=== PATIENT | female | born 1950 | race Caucasian/White ===

== ENCOUNTER 2018-06-03 06:43 | Day surgery (SDC) | payer OTHER ==
[~2018-06-03] VITALS: Ht 172.7 cm; Wt 84.5 kg
[~2018-06-03 06:43] MED LIST: ALENDRONATE SOD35 MG PO; ALEVE PM CAPLE1 EACH PO; BUPR150T2; FERRO-TIME325 MG PO; FISH OIL 1,0001 EAC2 PO; LISI20 PO; LORAZAPAM; LOVA40 PO; MULTI VITAMIN1 EACH PO; Metformin HCl850 MG PO; Neurontin 100100 MG PO; OXYACE5T PO; RANI150; RXOXYACE PO; TUMS X-STR300 MG PO; TYLENOL; Zanaflex4 M1 PO
[2018-06-03] MEDS ORDERED: Azor 10-20 MG1 EACH (07:16)
[2018-06-03] MEDS ORDERED: FISH OIL + D31 EACH (07:16)
[2018-06-03] MEDS ORDERED: LOVA40 (07:16)
[2018-06-03] MEDS ORDERED: HYDCHL12.5 (07:16)
== END 2018-06-03 08:55 | disposition home or self-care (01) ==
LOC: ORSCSDS 06:43
PROVIDERS: Student in an Organized Health Care Education/Training Program
PROC: 0DB68ZX Excision of Stomach, Via Natural or Artificial Opening Endoscopic, Diagnostic (ICD-10-PCS; principal; 2018-06-03 08:00)
DX: R11.2 Nausea with vomiting, unspecified (principal); K26.9 Duodenal ulcer, unspecified as acute or chronic, without hemorrhage or perforation; K25.9 Gastric ulcer, unspecified as acute or chronic, without hemorrhage or perforation; K29.70 Gastritis, unspecified, without bleeding; K44.9 Diaphragmatic hernia without obstruction or gangrene; E11.9 Type 2 diabetes mellitus without complications; I10 Essential (primary) hypertension; D64.9 Anemia, unspecified; E78.00 Pure hypercholesterolemia, unspecified; Z86.73 Personal history of transient ischemic attack (TIA), and cerebral infarction without residual deficits; Z87.891 Personal history of nicotine dependence; Z79.84 Long term (current) use of oral hypoglycemic drugs; Z79.899 Other long term (current) drug therapy
CPT/HCPCS: 82947; 88305; 88342; J0330; J1980; J2405

== ENCOUNTER 2018-09-02 08:32 | Day surgery (SDC) | payer OTHER ==
[~2018-09-02] VITALS: Ht 170.2 cm; Wt 90.6 kg
[~2018-09-02 08:32] MED LIST changes: +AMLO5 PO; +Azor 10-20 MG1 EACH; +FISH OIL + D31 EACH; +GABA300 PO; +HYDCHL12.5; +HYDCHL25 PO; +LOVA40; +Omeprazole20 M1 PO
== END 2018-09-02 10:57 | disposition home or self-care (01) ==
LOC: ORSCSDS 08:32
PROVIDERS: Student in an Organized Health Care Education/Training Program
PROC: 0DB98ZX Excision of Duodenum, Via Natural or Artificial Opening Endoscopic, Diagnostic (ICD-10-PCS; principal; 2018-09-02 10:15)
PROC: 0DB68ZX Excision of Stomach, Via Natural or Artificial Opening Endoscopic, Diagnostic (ICD-10-PCS; principal; 2018-09-02 10:15)
DX: D64.9 Anemia, unspecified (principal); Z87.11 Personal history of peptic ulcer disease; K29.80 Duodenitis without bleeding; I10 Essential (primary) hypertension; E78.5 Hyperlipidemia, unspecified; K44.9 Diaphragmatic hernia without obstruction or gangrene; K21.9 Gastro-esophageal reflux disease without esophagitis; E11.9 Type 2 diabetes mellitus without complications; Z87.891 Personal history of nicotine dependence; Z79.899 Other long term (current) drug therapy
CPT/HCPCS: 82947; 88305; 88342; J7120

== ENCOUNTER 2018-09-22 06:32 | Day surgery (SDC) | payer OTHER ==
[~2018-09-22] VITALS: Ht 170.2 cm; Wt 94.1 kg
== END 2018-09-22 08:20 | disposition home or self-care (01) ==
LOC: ORSCSDS 06:32
PROVIDERS: Ophthalmology
PROC: 08RJ3JZ Replacement of Right Lens with Synthetic Substitute, Percutaneous Approach (ICD-10-PCS; principal; 2018-09-22 08:00)
DX: H25.11 Age-related nuclear cataract, right eye (principal); I10 Essential (primary) hypertension; E11.9 Type 2 diabetes mellitus without complications; Z87.891 Personal history of nicotine dependence; Z79.899 Other long term (current) drug therapy; E66.9 Obesity, unspecified; Z68.32 Body mass index [BMI] 32.0-32.9, adult
CPT/HCPCS: 82947; J2001; J2250; J3010; J3301; J7120; V2632

== ENCOUNTER → 2018-10-17 | Outpatient (CLI) | payer OTHER ==
[2018-10-17 11:10] LABS: BASOPHILS ABSOLUTE AUTO 0.06 K/mm3 (0.00-0.23); BASOPHILS PERCENT AUTO 1 % (0-2); EOSINOPHILS ABSOLUTE AUTO 0.46 K/mm3 (0.00-0.68); EOSINOPHILS PERCENT AUTO 5 % (0-6); Hematocrit 26.4 % (33.0-51.0); Hemoglobin 8.1 g/dL (11.5-16.0); IMMATURE GRAN ABSOLUTE AUTO 0.03 K/mm3 (0.00-0.10); IMMATURE GRAN PERCENT AUTO 0 % (0-1); LYMPHOCYTES ABSOLUTE AUTO 2.64 K/mm3 (0.84-5.20); LYMPHOCYTES PERCENT AUTO 29 % (21-46); MONOCYTES ABSOLUTE AUTO 0.66 K/mm3 (0.16-1.47); MONOCYTES PERCENT AUTO 7 % (4-13); Mean Corpuscular HGB 25.8 pg (26.0-34.0); Mean Corpuscular HGB Conc 30.7 g/dL (31.5-36.5); Mean Corpuscular Volume 84 fL (80-100); Mean Platelet Volume 9.5 fL (9.1-12.4); NEUTROPHILS ABSOLUTE AUTO 5.34 K/mm3 (1.96-9.15); NEUTROPHILS PERCENT AUTO 58 % (41-73); Platelet Count 489 K/mm3 (150-400); RDW Coefficient Variation 15.6 % (11.7-14.2); RDW Standard Deviation 47.7 fL (35.1-46.3); Red Blood Cell Count 3.14 M/mm3 (3.80-5.20); White Blood Cell Count 9.19 K/mm3 (4.00-11.30)
[2018-10-17 11:32] LABS: Alanine Aminotransfer (ALT/SGP 12 U/L (12-78); Albumin, Blood 3.8 g/dL (3.4-5.0); Albumin/Globulin Ratio 1.1 (0.8-1.8); Alk Phos 95 U/L (40-126); Anion Gap 8 mmol/L (6-16); Aspartate Aminotrans (AST/SGOT 10 U/L (12-37); Bilirubin, Total 0.3 mg/dL (0.1-1.0); Blood Urea Nitrogen 16 mg/dL (8-24); Bun/Creatinine Ratio 15.4 (12.0-20.0); CO2, Blood 25 mmol/L (21-32); Calcium, Blood 8.7 mg/dL (8.5-10.1); Chloride, Blood 104 mmol/L (98-108); Creatinine, Blood 1.04 mg/dL (0.40-1.00); Globulin, Blood 3.4 g/dL (2.2-4.0); Glomerular Filtration Rate 53 (60-); Glucose, Blood 100 mg/dL (70-99); Sodium, Blood 137 mmol/L (136-145); Thyroid Stimulating Hormone 1.628 uIU/mL (0.360-4.800); Total Protein, Blood 7.2 g/dL (6.4-8.2)
[2018-10-17 11:38] LABS: Troponin I <0.017 ng/mL (0.000-0.040)
== END | disposition home or self-care (01) ==
LOC: LAB EV 11:04 → LAB SHORT 11:04
PROVIDERS: Physician Assistant
DX: R55 Syncope and collapse (principal); R06.02 Shortness of breath; R53.83 Other fatigue
CPT/HCPCS: 80053; 83880; 84443; 84484; 85025

== ENCOUNTER 2018-11-03 07:01 | Day surgery (SDC) | payer OTHER ==
[~2018-11-03] VITALS: Ht 170.2 cm; Wt 95.3 kg
[~2018-11-03 07:01] MED LIST changes: +HIGH POTENCY I134 MG PO
== END 2018-11-03 09:17 | disposition home or self-care (01) ==
LOC: ORSCSDS 07:01
PROVIDERS: Ophthalmology
PROC: 08RK3JZ Replacement of Left Lens with Synthetic Substitute, Percutaneous Approach (ICD-10-PCS; principal; 2018-11-03 08:30)
DX: H25.12 Age-related nuclear cataract, left eye (principal); I10 Essential (primary) hypertension; E11.9 Type 2 diabetes mellitus without complications; E66.9 Obesity, unspecified; Z68.32 Body mass index [BMI] 32.0-32.9, adult; Z79.899 Other long term (current) drug therapy
CPT/HCPCS: 82947; J2001; J2250; J3010; J3301; V2632

== ENCOUNTER 2018-11-19 13:14 | Observation (INO) | payer OTHER ==
[~2018-11-19] VITALS: Ht 170.2 cm; Wt 93.0 kg
[2018-11-19 14:23] LABS: BASOPHILS ABSOLUTE AUTO 0.07 K/mm3 (0.00-0.23); BASOPHILS PERCENT AUTO 1 % (0-2); EOSINOPHILS ABSOLUTE AUTO 0.35 K/mm3 (0.00-0.68); EOSINOPHILS PERCENT AUTO 3 % (0-6); Hematocrit 26.7 % (33.0-51.0); Hemoglobin 7.7 g/dL (11.5-16.0); IMMATURE GRAN ABSOLUTE AUTO 0.05 K/mm3 (0.00-0.10); IMMATURE GRAN PERCENT AUTO 1 % (0-1); LYMPHOCYTES ABSOLUTE AUTO 2.74 K/mm3 (0.84-5.20); LYMPHOCYTES PERCENT AUTO 27 % (21-46); MONOCYTES ABSOLUTE AUTO 0.72 K/mm3 (0.16-1.47); MONOCYTES PERCENT AUTO 7 % (4-13); Mean Corpuscular HGB 24.2 pg (26.0-34.0); Mean Corpuscular HGB Conc 28.8 g/dL (31.5-36.5); Mean Corpuscular Volume 84 fL (80-100); Mean Platelet Volume 9.2 fL (9.1-12.4); NEUTROPHILS ABSOLUTE AUTO 6.31 K/mm3 (1.96-9.15); NEUTROPHILS PERCENT AUTO 62 % (41-73); Platelet Count 484 K/mm3 (150-400); RDW Coefficient Variation 15.7 % (11.7-14.2); RDW Standard Deviation 47.9 fL (35.1-46.3); Red Blood Cell Count 3.18 M/mm3 (3.80-5.20); White Blood Cell Count 10.24 K/mm3 (4.00-11.30)
[2018-11-19 14:35] LABS: Alanine Aminotransfer (ALT/SGP 14 U/L (12-78); Albumin, Blood 3.8 g/dL (3.4-5.0); Alk Phos 99 U/L (50-136); Anion Gap 8 mmol/L (6-16); Aspartate Aminotrans (AST/SGOT 12 U/L (12-37); Bilirubin, Total 0.2 mg/dL (0.1-1.0); Blood Urea Nitrogen 21 mg/dL (8-24); Bun/Creatinine Ratio 23.8 (12.0-20.0); CO2, Blood 25 mmol/L (21-32); Calcium, Blood 9.5 mg/dL (8.5-10.1); Chloride, Blood 109 mmol/L (98-108); Creatinine, Blood 0.88 mg/dL (0.40-1.00); Glomerular Filtration Rate >60 (60-); Glucose, Blood 91 mg/dL (70-99); Sodium, Blood 142 mmol/L (136-145); Total Protein, Blood 7.8 g/dL (6.4-8.2)
[2018-11-19] MEDS ORDERED: GABA300 PO (14:42)
[2018-11-19] MEDS ORDERED: PRED FORTE5 ML LEFTEYE (14:44)
[2018-11-19 15:24] LABS: Percent Saturation 4.6 % (15.0-50.0)
--- NOTE | 2018-11-19 19:39 | NUR ---
SHIFT SUMMARY- PT ADMITTED THROUGH THE ED, BPS HAVE BEEN ELEVATED, PT HAS Hx OF BRAIN ANURISIM. CALLED DR WARNER AND RECIEVED ORDER FOR CHANGES FOR PRN BP MEDS. PT HAS NO C/O PAIN. IS TOLLERATING THE BLOOD TRANSFUSION WELL. SBP HOLDING AT 175, NEW ORDER FOR PRN HYDRALAZINE GIVEN WITH NO EFFECT. PT DENIES ANY DIZZINESS OR SOB. CALL LIGHT IS IN REACH BED ALARM ON FOR SAFETY. PT ALERT AND ORIENTED. AFTER INITIAL ASSESSMENT PT STATED SHE HAS HAD FREQUENT FALLS AT HOME THE INITIAL ASSESSMENT DOES NOT REFLECT THIS. PASSED ON IN BEDSIDE REPORT TO NIGHT MASSIEL HAJI.
--- NOTE | 2018-11-19 20:37 | NUR ---
NEXT UNIT OF PRBC'S STARTED. TRANSFUSION REACTION S/SX DISCUSSED WITH PT. VERBALIZED UNDERSTANDING. PT SITTING HF, RESTING QUIETLY.
[2018-11-20 04:51] LABS: Hematocrit 32.2 % (33.0-51.0); Hemoglobin 9.8 g/dL (11.5-16.0); Mean Corpuscular HGB 25.1 pg (26.0-34.0); Mean Corpuscular HGB Conc 30.4 g/dL (31.5-36.5); Mean Corpuscular Volume 82 fL (80-100); Mean Platelet Volume 9.2 fL (9.1-12.4); Platelet Count 422 K/mm3 (150-400); RDW Coefficient Variation 15.7 % (11.7-14.2); Red Blood Cell Count 3.91 M/mm3 (3.80-5.20); White Blood Cell Count 11.06 K/mm3 (4.00-11.30)
--- NOTE | 2018-11-20 07:35 | NUR ---
ASSUMED CARE OF PT- BEDSIDE REPORT COMPLETED WITH NIGHT MASSIEL HAJI. PT ALERT AND ORIENTED 1PA TO THE BATHROOM, BED ALARM ON FOR SAFETY, PT RECIEVED SECOND UNIT OF BLOOD LAST NIGHT PER REPORT FROM NIGHT MASSIEL HAJI PT DID NOT SLEEP LAST NIGHT. PT SLEEPING SOUNDLY DURRING BEDSIDE REPORT. WILL ASSESS SHORTLY, CALL LIGHT IN REACH, NO S&S OF DISTRESS NOTED AT THIS TIME.
--- NOTE | 2018-11-20 18:03 | NUR ---
SHIFT SUMMARY- GI DR CAME TO SEE THE PT THIS MORNING, PLAN FOR UPPER AND LOWER SCOPE TOMORROW MORNING AROUND 9 AM. PT STARTED THE FIRST HALF OF THE BOWEL PREP. SO FAR NO RESULT. PT REQUESTED THAT SHE BE ABLE TO USE THE BATHROOM IN JE[place]CLAUDE OF THE COMODE, STAFF ENCOURAGED HER TO USE THE COMODE FOR THE FINAL PART OF THE CLEANOUT SO STOOL CLARITY IS MORE EASILY DISSCERNED. PT AGREED, BSC PLACED AT THE BEDSIDE AND IS READY FOR PT USE. PT IN BED WITH HER CALL LIGHT IN REACH NO C/O PAIN AT THIS TIME.
--- NOTE | 2018-11-21 04:13 | NUR ---
SHIFT SUMMARY PT POWERED THROUGH HER [employer] WELL. PT HAS BEEN NPO SINCE MIDNIGHT. PT HAD NO COMPLAINTS NOTED. PT HAS BEEN UP TO USE BSC W/O INCIDENT. PT CURRENTLY SLEEPING. CALL LIGHT IN REACH.
[2018-11-21 05:09] LABS: Hemoglobin 10.5 g/dL (11.5-16.0); Mean Corpuscular HGB 25.7 pg (26.0-34.0); Mean Corpuscular HGB Conc 30.9 g/dL (31.5-36.5); Mean Corpuscular Volume 83 fL (80-100); Mean Platelet Volume 9.1 fL (9.1-12.4); Platelet Count 437 K/mm3 (150-400); RDW Coefficient Variation 15.8 % (11.7-14.2); RDW Standard Deviation 47.8 fL (35.1-46.3); Red Blood Cell Count 4.09 M/mm3 (3.80-5.20); White Blood Cell Count 8.48 K/mm3 (4.00-11.30)
--- NOTE | 2018-11-21 08:09 | NUR ---
ASSUMED CARE OF PT- BEDSIDE REPORT COMPLETED WITH NIGHT RN ADITHYA. PT ALERT AND ORIENTED AMBULATING INDEPENDENTLY IN THE HALLS, WEAKNESS NO LONGER NOTED ON ASSESSMENT. PT COMPLETED BOWEL PREP AND, PER REPORT STOOL IS NOW CLEAR. PT IN GOOD SPIRITS AND SEEMS TO BE FEELING BETTER TODAY THAN PREVIOUS DAY. PT IN BED WITH THE CALL LIGHT IN REACH, BSC AT THE BEDSIDE IF NEEDED.
--- NOTE | 2018-11-21 09:34 | NUR ---
11/21/18 0934 Nancy Gerardo History, Chart, Medications and Allergies reviewed before start of procedure.MONITOR INTACT WITH CONTINUOUS PULSE OXIMETRY AND INTERMITTENT BP.3-LEAD EKG REVIEWED WITH PHYSICIAN PRIOR TO START OF PROCEDURE.O2 VIA N/C INTACT THROUGHOUT SEDATION/PROCEDURE. PATIENT DETERMINED TO BE ASA APPROPRIATE FOR PROPOFOL SEDATION PRIOR TO START OF PROCEDURE BY
[2018-11-21] MEDS ORDERED: FERRETTS325 MG PO (14:17)
[2018-11-21] MEDS ORDERED: THERA1 EACH PO (14:17)
[2018-11-21] MEDS ORDERED: MIRALAX17 GM PO (14:18)
--- NOTE | 2018-11-21 16:00 | NUR ---
DISCHARGE NOTE- PT WAS GIVEN VERBAL AND WRITTEN DISCHARGE INSTRUCTIONS AND ACKNOWLEDGED UNDERSTANDING OF THEM. PT FAMILY PRESENT FOR DISCHARGE TEACHING. ALL NEW MEDICATIONS FOR THE PT ARE OTC MEDICATIONS, PT DECLINED TO HAVE THEM FILLED AT THE PHARMACY. PT FAMILY PRESENT FOR THIS. PT IVS DC'D PRIOR TO DISCHARGE, PT DENIED PAIN AND HAD NO S&S OF DISTRESS NOTED AT THE TIME OF DISCHARGE. PT WAS ESCORTED OUT VIA W/C BY THE ASSISTANT BRANCH MANAGER. NO FURTHER QUESTIONS AT THE TIME OF DISCHARGE.
== END 2018-11-21 14:35 | disposition home or self-care (01) ==
LOC: ER 13:14 → MEDS 13:15
PROVIDERS: Emergency Medicine; Physician Assistant; Student in an Organized Health Care Education/Training Program; ADMIT Internal Medicine
PROC: 0DJD8ZZ Inspection of Lower Intestinal Tract, Via Natural or Artificial Opening Endoscopic (ICD-10-PCS; principal; 2018-11-21 09:30)
PROC: 0DBK8ZX Excision of Ascending Colon, Via Natural or Artificial Opening Endoscopic, Diagnostic (ICD-10-PCS; 2018-11-21 09:30)
DX: K64.8 Other hemorrhoids (principal); D50.9 Iron deficiency anemia, unspecified; K29.80 Duodenitis without bleeding; I89.0 Lymphedema, not elsewhere classified; K44.9 Diaphragmatic hernia without obstruction or gangrene; I16.0 Hypertensive urgency; I10 Essential (primary) hypertension; E11.9 Type 2 diabetes mellitus without complications; E78.5 Hyperlipidemia, unspecified; Z79.899 Other long term (current) drug therapy; Z79.84 Long term (current) use of oral hypoglycemic drugs; Z87.891 Personal history of nicotine dependence; Z86.010 Personal history of colon polyps
CPT/HCPCS: 36415; 36430; 80053; 82728; 82947; 83540; 83550; 85025; 85027; 86850; 86900; 86901; 86923; 88305; 96374; 99285; G0378; J0360; J2704; J2916; J7050; J7120; P9016

== ENCOUNTER 2018-12-03 12:54 | Emergency (ER) | payer OTHER ==
[~2018-12-03] VITALS: Ht 170.2 cm; Wt 93.0 kg
[~2018-12-03 12:54] MED LIST changes: +FERRETTS325 MG PO; +MIRALAX17 GM PO; +PRED FORTE5 ML LEFTEYE; +THERA1 EACH PO
[2018-12-03 13:50] LABS: BASOPHILS ABSOLUTE AUTO 0.05 K/mm3 (0.00-0.23); BASOPHILS PERCENT AUTO 0 % (0-2); EOSINOPHILS ABSOLUTE AUTO 0.22 K/mm3 (0.00-0.68); EOSINOPHILS PERCENT AUTO 2 % (0-6); Hematocrit 30.5 % (33.0-51.0); Hemoglobin 9.1 g/dL (11.5-16.0); IMMATURE GRAN ABSOLUTE AUTO 0.05 K/mm3 (0.00-0.10); IMMATURE GRAN PERCENT AUTO 0 % (0-1); LYMPHOCYTES ABSOLUTE AUTO 2.69 K/mm3 (0.84-5.20); LYMPHOCYTES PERCENT AUTO 20 % (21-46); MONOCYTES PERCENT AUTO 4 % (4-13); Mean Corpuscular HGB 26.6 pg (26.0-34.0); Mean Corpuscular HGB Conc 29.8 g/dL (31.5-36.5); Mean Platelet Volume 9.9 fL (9.1-12.4); NEUTROPHILS ABSOLUTE AUTO 10.05 K/mm3 (1.96-9.15); NEUTROPHILS PERCENT AUTO 74 % (41-73); Platelet Count 408 K/mm3 (150-400); RDW Coefficient Variation 18.7 % (11.7-14.2); Red Blood Cell Count 3.42 M/mm3 (3.80-5.20); White Blood Cell Count 13.66 K/mm3 (4.00-11.30)
[2018-12-03 14:05] LABS: Alanine Aminotransfer (ALT/SGP 15 U/L (12-78); Albumin, Blood 3.3 g/dL (3.4-5.0); Alk Phos 83 U/L (50-136); Anion Gap 8 mmol/L (6-16); Aspartate Aminotrans (AST/SGOT 14 U/L (12-37); Bilirubin, Total 0.2 mg/dL (0.1-1.0); Blood Urea Nitrogen 13 mg/dL (8-24); Bun/Creatinine Ratio 16.4 (12.0-20.0); CO2, Blood 22 mmol/L (21-32); Calcium, Blood 8.3 mg/dL (8.5-10.1); Chloride, Blood 110 mmol/L (98-108); Creatinine, Blood 0.79 mg/dL (0.40-1.00); Globulin, Blood 3.3 g/dL (2.2-4.0); Glomerular Filtration Rate >60 (60-); Glucose, Blood 160 mg/dL (70-99); Potassium, Blood 3.7 mmol/L (3.5-5.5); Sodium, Blood 140 mmol/L (136-145); Total Protein, Blood 6.6 g/dL (6.4-8.2)
[2018-12-03 14:28] LABS: Mean Corpuscular Volume 89 fL (80-100)
[2018-12-03] MEDS ORDERED: AMLO5 PO (14:51)
== END 2018-12-03 19:05 | disposition home or self-care (01) ==
LOC: ER 12:54
PROVIDERS: Physician Assistant
DX: D64.9 Anemia, unspecified (principal); R06.00 Dyspnea, unspecified; Z87.891 Personal history of nicotine dependence; Z79.899 Other long term (current) drug therapy; Z79.84 Long term (current) use of oral hypoglycemic drugs
CPT/HCPCS: 36415; 36430; 80053; 85025; 86850; 86900; 86901; 86923; 93005; 93010; 96360; 96361; 99285-25; J7030; P9016

== ENCOUNTER → 2019-03-28 | Outpatient (CLI) | payer OTHER | END | disposition home or self-care (01) | LOC: LAB SHORT 08:36 → PLD 08:36 | DX: M1A.9XX1 Chronic gout, unspecified, with tophus (tophi) (principal) | CPT/HCPCS: 88305 ==

== ENCOUNTER → 2019-04-14 | Outpatient (CLI) | payer OTHER ==
[2019-04-14 17:01] LABS: Percent Saturation 27.4 % (15.0-50.0)
== END | disposition home or self-care (01) ==
LOC: LAB 14:05 → LAB SHORT 14:05
PROVIDERS: Internal Medicine Hematology & Oncology
DX: D50.9 Iron deficiency anemia, unspecified (principal); D51.8 Other vitamin B12 deficiency anemias
CPT/HCPCS: 82607; 82728; 82746; 83540; 83550

== ENCOUNTER → 2019-05-12 | Outpatient (CLI) | payer OTHER ==
[2019-05-16 15:08] LABS: A/G RATIO 1.2 (0.7-1.7); ALBUMIN 4.1 g/dL (2.9-4.4); ALPHA-1-GLOBULIN 0.2 g/dL (0.0-0.4); ALPHA-2-GLOBULIN 1.1 g/dL (0.4-1.0); GAMMA GLOBULIN 1.1 g/dL (0.4-1.8); GLOBULIN, TOTAL 3.4 g/dL (2.2-3.9); M-SPIKE Not Observed g/dL (Not Observed); PROTEIN, TOTAL, SERUM 7.5 g/dL (6.0-8.5)
== END | disposition home or self-care (01) ==
LOC: LAB SHORT 13:30 → LAB 13:30
PROVIDERS: Internal Medicine Hematology & Oncology
DX: D51.8 Other vitamin B12 deficiency anemias (principal); E11.59 Type 2 diabetes mellitus with other circulatory complications
CPT/HCPCS: 84165

== ENCOUNTER → 2022-12-08 | Outpatient (CLI) | payer MEDICARE | END | disposition home or self-care (01) | LOC: LAB SHORT 10:30 → LAB 10:30 | DX: N39.0 Urinary tract infection, site not specified (principal) | CPT/HCPCS: 87086 ==